=== PATIENT | female | born 1950 | race American Indian/Alaskan Native ===

== ENCOUNTER 2017-09-11 10:01 | Emergency (ER) | payer MEDICARE ==
[2017-09-11 11:10] VITALS: BP 163/88
[2017-09-11 11:50] LABS: Basophils % (Auto) 0.7 % (0.0-1.8); Eosinophils # (Auto) 0.2 K/mm3 (0.0-0.4); Eosinophils % (Auto) 2.5 % (0.0-4.3); Hematocrit 39.2 % (30.3-42.9); Hemoglobin 12.4 gm/dl (10.1-14.3); Lymphocytes # (Auto) 2.2 K/mm3 (1.2-5.4); Lymphocytes % (Auto) 36.3 % (13.4-35.0); Mean Corpuscular HGB Conc 32 % (30-34); Mean Corpuscular Volume 78 fl (79-97); Monocytes # (Auto) 0.7 K/mm3 (0.0-0.8); Monocytes % (Auto) 10.7 % (0.0-7.3); Platelet Count 173 K/mm3 (140-440); Red Blood Count 5.02 M/mm3 (3.65-5.03)
[2017-09-11 11:51] LABS: Mean Corpuscular Hemoglobin 25 pg (28-32)
[2017-09-11 12:03] LABS: Alanine Aminotransferase 11 units/L (7-56); BUN/Creatinine Ratio 15; Blood Urea Nitrogen 12 mg/dL (7-17); Calcium 9.8 mg/dL (8.4-10.2); Hemolysis Index 2
[2017-09-11 12:06] LABS: Bacteria,Urine 1+ /HPF (Negative); Bilirubin,Urine NEG (Negative); Blood,Urine SM (Negative); Color,Urine Yellow (Yellow); Hyaline Casts,Urine 1 /LPF; Nitrite,Urine NEG (Negative); Protein,Urine <15 mg/dL mg/dL (Negative); Urobilinogen,Urine < 2.0 mg/dL (<2.0)
== END 2017-09-11 21:00 | disposition left against medical advice (07) ==
LOC: ED 10:01
DX: R10.9 Unspecified abdominal pain (principal); Z53.21 Procedure and treatment not carried out due to patient leaving prior to being seen by health care provider
CPT/HCPCS: 36415; 80053; 81001; 85025; 93005; 93010

== ENCOUNTER 2018-03-11 15:00 | Outpatient (CLI) | payer MEDICARE | END 2018-03-11 15:01 | disposition home or self-care (01) | LOC: LABHHL 15:00 | PROVIDERS: ATTEND Surgery | DX: N60.22 Fibroadenosis of left breast (principal); I10 Essential (primary) hypertension; E78.00 Pure hypercholesterolemia, unspecified; Z91.09 Other allergy status, other than to drugs and biological substances | CPT/HCPCS: 88305 ==

== ENCOUNTER 2018-04-30 07:39 | Day surgery (SDC) | payer MEDICARE ==
--- NOTE | 2018-04-30 08:36 | Anesthesia Consultation ---
Anesthesia Consult and Med Hx Date of service: 04/30/18 - Airway Anesthetic Teeth Evaluation: Good ROM Head & Neck: Adequate Mental/Hyoid Distance: Adequate Mallampati Class: Class II Intubation Access Assessment: Good - Pulmonary Exam CTA: Yes - Cardiac Exam Cardiac Exam: RRR - Pre-Operative Health Status ASA Pre-Surgery Classification: ASA3 Proposed Anesthetic Plan: MAC - Pulmonary Hx Smoking: Yes (CIGARETTES 4 CIGS PD X 34 YRS, QUIT IN 1999) Hx Asthma: No COPD: No Hx Pneumonia: No Hx Sleep Apnea: Yes - Cardiovascular System Hx Hypertension: Yes (FOR 10+ YRS, DR. LAUGHLIN- [facility] CHIEF) Hx Coronary Artery Disease: Yes Hx Heart Attack/AMI: Yes Hx Pacemaker: Yes Hx Internal Defibrillator: Yes Hx Heart Murmur: Yes - Central Nervous System Hx Psychiatric Problems: No - Endocrine Hx End Stage Renal Disease: No - Other Systems Hx Cancer: No
--- NOTE | 2018-04-30 08:36 | Anesthesia Day of Surgery ---
Anesthesia Day of Surgery - Day of Surgery Patient Examined: Yes Patient H&P Reviewed: Yes Patient is NPO: Yes
[2018-04-30] MEDS ORDERED: NACL 0.9% 1000 ML 1,000 ML IV SCH (09:00)
[2018-04-30] MEDS ORDERED: DIPRIVAN 10 MG/ML IV ONE ×2 (10:06)
--- NOTE | 2018-04-30 10:41 | Short Stay Summary ---
Short Stay Documentation Date of service: 04/30/18 Narrative H&P: The patient presents for screening colonoscopy. No prior studies. - History Past Medical History: arrhythmia, CAD, diabetes Past Surgical History: cholecystectomy, Other (Defibrillator) Social history: no significant social history - Allergies and Medications Current Medications: Allergies Iodinated Contrast- Oral and IV Dye Allergy (Verified 04/30/18 08:28) HOT FEELING thallium-201 Allergy (Verified 12/10/15 08:33) hot Pt states her head became extremely hot. Home Medications Medication Instructions Recorded Confirmed Last Taken Type RX: Aspirin [Aspirin BABY CHEW TAB] 81 mg PO QDAY 02/02/14 04/30/18 04/29/18 History RX: Atorvastatin [Lipitor] 80 mg PO QHS 02/02/14 04/30/18 04/30/18 History RX: Gabapentin 100 mg PO BID 02/02/14 04/30/18 04/29/18 History RX: Isosorbide Mononitrate 30 mg PO QDAY 02/02/14 04/29/18 12/09/15 History [Isosorbide Mononitrate ER (IMDUR)] 30mg RX: Lisinopril [Zestril] 40 mg PO BID 02/02/14 04/29/18 12/09/15 History 40mg RX: Nitroglycerin [Nitrostat] 0.4 mg SL Q5M PRN 02/02/14 04/29/18 Unknown History RX: amLODIPine [Norvasc] 10 mg PO DAILY 15 Days tablet 02/03/14 04/30/18 Rx RX: Metformin HCl [metFORMIN ER] 1,000 mg PO BID 09/17/14 04/30/18 04/30/18 History RX: Carvedilol 6.25 mg PO DAILY 12/10/15 04/29/18 12/09/15 History 6.25mg RX: Cyclobenzaprine [Flexeril 10 10 mg PO Q6HR PRN 12/10/15 04/29/18 12/09/15 History MG TAB] 10mg RX: Meloxicam 7.5 mg PO DAILY 12/10/15 04/29/18 12/09/15 History 7.5mg RX: Tizanidine HCl [tiZANidine] 4 mg PO QHS 0404/29/18 12/09/15 History 4mg Entresto 49 mg-51 mg Tablet 1 tab PO DAILY 04/29/18 04/30/18 04/30/18 History Lantus Solostar 5 units SUB-Q PRN PRN 04/29/18 04/29/18 Unknown History Meloxicam 7.5 mg PO DAILY 04/29/18 04/29/18 Unknown History tiZANidine 2 mg PO DAILY 04/29/18 04/29/18 Unknown History traMADol 50 mg PO DAILY 04/29/18 04/29/18 Unknown History Active Medications Sodium Chloride (Nacl 0.9% 1000 Ml) 1,000 mls @ 50 mls/hr IV DIRECT KIRBY Last Admin: 04/30/18 08:57 Dose: 50 mls/hr - Physical exam General appearance: no acute distress, well-nourished, obese Integumentary: no rash, no growths, no abnormal pigmentation HEENT: Atraumatic, PERRLA, EOMI, Mucous membr. moist/pink Lungs: Clear to auscultation, Normal air movement Breasts: deferred Heart: Regular rate, Normal S1, Normal S2, No murmurs Gastrointestinal: normoactive bowel sounds, no tenderness, no distended, no masses, no guarding, obese Female Genitourinary: deferred Rectal Exam: normal exam-external/orifice, normal rectal tone, no mass Extremities: no ischemia, pulses intact, pulses symmetrical, No edema, normal temperature, normal color, Full ROM Neurological: Normal gait, Normal speech, Strength at 5/5 X4 ext, Normal tone, Sensation intact, Cranial nerves 3-12 NL - Brief post op/procedure progress note Date of procedure: 04/30/18 Findings: see dictated report Estimated blood loss: none Pathology: list (cecal polyp) Specimen disposition: to lab Condition: stable - Disposition Condition at discharge: Good Disposition: DC-01 TO HOME OR SELFCARE - Discharge Diagnoses (1) Colon cancer screening Status: Acute Short Stay Discharge Plan Activity: other (no driving for 24 hours.) Weight Bearing Status: Weight Bear as Tolerated Diet: regular, diabetic Follow up with: CRISSY GALLOWAY DO [Primary Care Provider] - 7 Days
--- NOTE | 2018-04-30 10:45 | Operative Report ---
Operative Report Operative Report: Date of procedure: 04/30/2018 Preprocedure diagnosis: Colon cancer screening. No prior studies. Post procedure diagnosis: 1 cm cecal polyp Procedure: Colonoscopy to the cecum with snare polypectomy Endoscopist: Dr. De Leon Anesthesia: Monitored anesthesia care per anesthesia department Estimated blood loss: 0 Medications: Monitored anesthesia care. See separate report by anesthesia for details. After careful discussion of the nature and purpose of the procedure as well as details of the technique risks benefits and alternatives the patient gave consent. Please see recent history and physical from the office. The patient was placed in the left lateral decubitus position and medicated per anesthesia. A rectal exam was performed sphincter tone was normal there were no masses palpable. The [employer] 570 scope was passed transanally and advanced under continuous direct vision without difficulty to the cecum. The colon was well prepared. The cecum revealed a 1 cm pedunculated polyp. The polyp was removed with minimal cautery without difficulty and retrieved by suction. The ascending colon was normal and on forward and retroflexed views. The transverse colon, descending colon, and sigmoid colon were normal. The rectum was normal on forward and retroflexed views. The procedure was well-tolerated overall and the patient was observed in recovery. Conclusions: 1 cm cecal polyp. Otherwise normal colon. Plan: Repeat colonoscopy in approximately 3 years. Signed electronically: Harrison De Leon M.D.
[2018-04-30 11:06] VITALS: BP 151/71
== END 2018-04-30 07:40 | disposition home or self-care (01) ==
LOC: GIO 07:39
PROVIDERS: ATTEND Internal Medicine Gastroenterology
DX: D12.0 Benign neoplasm of cecum (principal); K57.30 Diverticulosis of large intestine without perforation or abscess without bleeding; K59.00 Constipation, unspecified; I25.2 Old myocardial infarction; I11.0 Hypertensive heart disease with heart failure; I50.9 Heart failure, unspecified; I25.10 Atherosclerotic heart disease of native coronary artery without angina pectoris; E78.00 Pure hypercholesterolemia, unspecified; G47.30 Sleep apnea, unspecified; Z90.49 Acquired absence of other specified parts of digestive tract; Z98.890 Other specified postprocedural states; Z91.041 Radiographic dye allergy status; Z88.8 Allergy status to other drugs, medicaments and biological substances; Z95.1 Presence of aortocoronary bypass graft; Z79.01 Long term (current) use of anticoagulants; Z79.899 Other long term (current) drug therapy; Z79.82 Long term (current) use of aspirin; Z87.891 Personal history of nicotine dependence
CPT/HCPCS: 45385; 82962; 88305; J2704; J7030